=== PATIENT | female | born 1970 | race Caucasian/White ===

== ENCOUNTER → 2017-02-15 | Outpatient (CLI) | payer OTHER, BC ==
[~2017-02-15] MED LIST: ACYC-57 PO; BUSP15TA70 PO; LAMO100T16 PO; LEVO50TA6 PO; OMEP20CA9 PO; SRQ25 PO; TOPI100T20 PO
--- NOTE | 2017-02-15 14:05 | DIAGNOSTIC IMAGING REPORT ---
RIGHT HAND MIN 3 VIEWS ROUTINE CLINICAL HISTORY: Right hand pain status post trauma COMPARISON: None. DISCUSSION: No acute fractures or dislocations are visualized. There is a tiny corticated ossicle adjacent the ulnar styloid. This is felt to be old. IMPRESSION: No acute fractures or dislocations identified. Electronically signed by: Javid Peña M.D. 02/15/2017 2:04 PM Dictated Date/Time: 02/15/2017 2:03 PM
== END | disposition home or self-care (01) ==
LOC: C.RAD1850 13:48
PROVIDERS: ATTEND Physician Assistant
DX: S60.221A Contusion of right hand, initial encounter (principal); X58.XXXA Exposure to other specified factors, initial encounter

== ENCOUNTER → 2017-10-27 | Outpatient (CLI) | payer OTHER ==
[2017-10-27 14:57] LABS: BASO % 0.4 %; BASO ABS # 0.02 K/uL (0-0.2); EOS % 1.5 %; EOS ABS # 0.08 K/uL (0-0.5); HEMATOCRIT 40.2 % (37-47); IG# 0.01 K/uL (0.00-0.02); LYMPH % 35.7 %; MEAN CELL VOLUME 92.4 fL (80-100); MEAN CORPUSCULAR HEMOGLOBIN 32.2 pg (25-34); MEAN CORPUSCULAR HGB CONC 34.8 g/dl (32-36); MEAN PLATELET VOLUME 10.5 fL (7.4-10.4); MONO % 8.8 %; MONO ABS # 0.47 K/uL (0.11-0.59); NEUT % 53.4 %; NEUT ABS # 2.84 K/uL (1.4-6.5); PLATELET COUNT 311 K/uL (130-400); RED CELL DISTRIBUTION WIDTH CV 12.7 % (11.5-14.5); RED CELL DISTRIBUTION WIDTH SD 42.7 fL (36.4-46.3); WHITE BLOOD COUNT 5.32 K/uL (4.8-10.8)
[2017-10-27 15:10] LABS: BLOOD UREA NITROGEN 16 mg/dl (7-18); CALCIUM 8.9 mg/dl (8.5-10.1); CARBON DIOXIDE 22 mmol/L (21-32); CREATININE 0.86 mg/dl (0.60-1.20); GLUCOSE 93 mg/dl (70-99); POTASSIUM 3.8 mmol/L (3.5-5.1); SODIUM 140 mmol/L (136-145)
[2017-10-27 15:21] LABS: TRANSFERRIN 234 mg/dl (200-360)
[2017-10-30 15:41] LABS: ANA SCREEN TC 249X NEGATIVE (NEGATIVE)
== END | disposition home or self-care (01) ==
LOC: C.LAB 13:01
DX: R73.9 Hyperglycemia, unspecified (principal); E78.5 Hyperlipidemia, unspecified; E03.9 Hypothyroidism, unspecified; E61.1 Iron deficiency; E55.9 Vitamin D deficiency, unspecified; M19.90 Unspecified osteoarthritis, unspecified site